=== PATIENT | female | born 1990 | race Caucasian/White ===

== ENCOUNTER 2020-03-13 17:31 | Emergency (ER) | payer OTHER, BC | END 2020-03-13 19:53 | disposition home or self-care (01) | LOC: ER 17:31 | DX: S46.911A Strain of unspecified muscle, fascia and tendon at shoulder and upper arm level, right arm, initial encounter (principal); Z91.09 Other allergy status, other than to drugs and biological substances; Z79.899 Other long term (current) drug therapy; X50.0XXA Overexertion from strenuous movement or load, initial encounter ==

== ENCOUNTER 2020-05-22 15:52 | Emergency (ER) | payer BC ==
[~2020-05-22] VITALS: Ht 162.6 cm; Wt 92.1 kg
[~2020-05-22 15:52] MED LIST: CYCLOBENZAPRINE5 MG PO; IBUP800 PO; MELO7.5 PO; Norco 5-325 Ta1 EACH PO
== END 2020-05-22 17:00 | disposition home or self-care (01) ==
LOC: ER 15:52
DX: M75.41 Impingement syndrome of right shoulder (principal); Z79.899 Other long term (current) drug therapy; X50.9XXA Other and unspecified overexertion or strenuous movements or postures, initial encounter; Y92.89 Other specified places as the place of occurrence of the external cause; Y99.0 Civilian activity done for income or pay
CPT/HCPCS: 20611; 96372-59; 99283-25; J1885; J3301

== ENCOUNTER 2021-03-02 08:01 | Emergency (ER) | payer BC ==
[~2021-03-02] VITALS: Ht 157.5 cm; Wt 88.9 kg
[2021-03-02] MEDS ORDERED: Robaxin750 MG PO (08:34)
[2021-03-02] MEDS ORDERED: Naprosyn500 MG PO (08:34)
== END 2021-03-02 09:26 | disposition home or self-care (01) ==
LOC: ER 08:01
DX: R07.81 Pleurodynia (principal); Z91.048 Other nonmedicinal substance allergy status

== ENCOUNTER 2021-09-19 20:50 | Emergency (ER) | payer OTHER ==
[~2021-09-19] VITALS: Ht 162.6 cm; Wt 86.2 kg
[~2021-09-19 20:50] MED LIST changes: +Naprosyn500 MG PO; +Robaxin750 MG PO
[2021-09-19 23:54] LABS: BASOPHILS ABSOLUTE AUTO 0.04 K/mm3 (0.00-0.23); BASOPHILS PERCENT AUTO 1 % (0-2); EOSINOPHILS ABSOLUTE AUTO 0.16 K/mm3 (0.00-0.68); EOSINOPHILS PERCENT AUTO 2 % (0-6); Hematocrit 40.5 % (33.0-51.0); Hemoglobin 13.8 g/dL (11.5-16.0); IMMATURE GRAN ABSOLUTE AUTO 0.02 K/mm3 (0.00-0.10); IMMATURE GRAN PERCENT AUTO 0 % (0-1); LYMPHOCYTES PERCENT AUTO 24 % (21-46); MONOCYTES ABSOLUTE AUTO 0.48 K/mm3 (0.16-1.47); MONOCYTES PERCENT AUTO 6 % (4-13); Mean Corpuscular HGB 31.1 pg (26.0-34.0); Mean Corpuscular HGB Conc 34.1 g/dL (31.5-36.5); Mean Corpuscular Volume 91 fL (80-100); Mean Platelet Volume 11.6 fL (9.1-12.4); NEUTROPHILS ABSOLUTE AUTO 5.29 K/mm3 (1.96-9.15); NEUTROPHILS PERCENT AUTO 67 % (41-73); Platelet Count 231 K/mm3 (150-400); RDW Standard Deviation 40.1 fL (35.1-46.3); Red Blood Cell Count 4.44 M/mm3 (3.80-5.20); White Blood Cell Count 7.89 K/mm3 (4.00-11.30)
== END 2021-09-20 00:42 | disposition home or self-care (01) ==
LOC: ER 20:50
PROVIDERS: Physician Assistant
DX: N83.201 Unspecified ovarian cyst, right side (principal)
CPT/HCPCS: 36415; 74177; 81025; 85025; 99284-25; Q9967

== ENCOUNTER → 2024-09-07 | Outpatient (CLI) | payer OTHER ==
[2024-09-13 12:42] LABS: HPV HIGH RISK BY TMA Not Detected; HPV SOURCE Cervical
== END | disposition home or self-care (01) ==
LOC: LAB SHORT 15:29 → LAB 15:29
PROVIDERS: Nurse Practitioner Family
DX: Z01.419 Encounter for gynecological examination (general) (routine) without abnormal findings (principal)
CPT/HCPCS: 87624; G0123